=== PATIENT | female | born 1985 | race Two or more races ===

== ENCOUNTER 2022-04-14 09:29 | Outpatient (CLI) | payer OTHER | END 2022-04-14 10:52 | disposition home or self-care (01) | LOC: PRENATAL 09:29 | PROVIDERS: ATTEND Obstetrics & Gynecology Maternal & Fetal Medicine | DX: O35.0XX0 Maternal care for (suspected) central nervous system malformation in fetus, not applicable or unspecified (principal); O35.3XX0 Maternal care for (suspected) damage to fetus from viral disease in mother, not applicable or unspecified; O34.219 Maternal care for unspecified type scar from previous cesarean delivery; O09.819 Supervision of pregnancy resulting from assisted reproductive technology, unspecified trimester; O99.210 Obesity complicating pregnancy, unspecified trimester; Z88.0 Allergy status to penicillin; Z3A.25 25 weeks gestation of pregnancy ==

== ENCOUNTER 2022-07-10 10:00 | Inpatient (IN) | payer OTHER ==
[~2022-07-10] VITALS: Ht 170.2 cm; Wt 3.2 kg
[2022-07-13] MEDS ORDERED: COMPLETE NATAL1 EACH PO (14:32)
[2022-07-16] MEDS ORDERED: COLACE100 MG PO (13:48)
[2022-07-16] MEDS ORDERED: IBU800 MG PO (13:48)
[2022-07-16] MEDS ORDERED: SIMETHICONE125 M1 PO (13:49)
== END 2022-07-16 14:53 | disposition home or self-care (01) | DRG 788 ==
LOC: OB/GYN 07-13 10:00 → O/R 07-13 14:00 → OB/GYN 07-13 19:22
PROVIDERS: ADMIT Obstetrics & Gynecology; ATTEND Obstetrics & Gynecology
PROC: 0DNW0ZZ Release Peritoneum, Open Approach (ICD-10-PCS; 2022-07-13)
PROC: 4A1HXCZ Monitoring of Products of Conception, Cardiac Rate, External Approach (ICD-10-PCS; 2022-07-13)
PROC: 10D00Z1 Extraction of Products of Conception, Low, Open Approach (ICD-10-PCS; principal; 2022-07-13 17:30)
DX: O34.211 Maternal care for low transverse scar from previous cesarean delivery (principal); O99.892 Other specified diseases and conditions complicating childbirth; N73.6 Female pelvic peritoneal adhesions (postinfective); Z37.0 Single live birth; Z3A.38 38 weeks gestation of pregnancy; Z20.822 Contact with and (suspected) exposure to COVID-19